=== PATIENT | male | born 1990 | race Asian ===

== ENCOUNTER 2017-12-02 10:27 | Emergency (ER) | payer OTHER ==
[~2017-12-02] VITALS: Ht 167.6 cm; Wt 73.2 kg
[2017-12-02 10:32] VITALS: TEMP 36.7; Ht 167.6 cm; Wt 73.2 kg
[2017-12-02] MEDS ORDERED: ALBUT/IPRATROP 3MG/0.5MG NEB 3 ML VIAL INH STA (10:47)
--- NOTE | 2017-12-02 10:50 | EMERGENCY ROOM VISIT NOTE ---
History Report prepared by Mary: Guerda Rasmussen Under the Supervision of: Dr. Maira Squires D.O. First contact with patient: 10:36 Chief Complaint: RESPIRATORY PROBLEMS Stated Complaint: HARD TO BREATH, CHEST FEELS BAD, FEVER YESTERDAY History of Present Illness The patient is a 27 year old female who presents to the Emergency Room with complaints of intermittent trouble breathing that started several days ago. The patient also complains of chest pressure and notes taking a deep breath makes his discomfort worse. He notes he had a fever of 37.8 yesterday. He reports he is coughing but is not producing any sputum. He states he has a sore throat but no difficulty swallowing. He also had abdominal pain 2 days ago but has not had any since. He notes he had an episode of vomiting yesterday. The patient notes he has diarrhea every morning but this is a chronic issue for him. He states his bowel movements change depending on what he eats. He denies any new medications, recent travels, or change in diet. 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 He denies a history of asthma. Source of History: patient Onset: several days ago Quality: pressure Timing: intermittent Modifying Factors (Worsening): other (taking a deep breath) Associated Symptoms: + fevers, + sorethroat, + cough, + chest pain (chest pressure), + vomiting, + abdominal pain, + diarrhea Review of Systems See HPI for pertinent positives & negatives. A total of 10 systems reviewed and were otherwise negative. Past Medical & Surgical Medical Problems: (1) Diarrhea Family History No pertinent family history Social History Smoking Status: Never Smoker Current/Historical Medications No Active Prescriptions or Reported Meds Allergies Coded Allergies: No Known Allergies (Unverified , 12/02/17) Physical Exam Vital Signs Date Time Temp Pulse Resp B/P (MAP) Pulse Ox O2 Delivery O2 Flow Rate FiO2 12/02/17 12:31 64 17 129/73 97 Room Air 12/02/17 10:41 Room Air 12/02/17 10:32 36.7 66 18 133/78 96 Room Air Physical Exam GENERAL: alert, well appearing, well nourished, no distress, non-toxic EYE EXAM: normal conjunctiva, PERRL and EOM's grossly intact OROPHARYNX: no exudate, no erythema, lips, buccal mucosa, and tongue normal and mucous membranes are moist NECK: supple, no nuchal rigidity, no adenopathy, non-tender LUNGS: Clear to auscultation. Normal chest wall mechanics, no w/r/r HEART: no murmurs, S1 normal and S2 normal CHEST: Mild reproducible tenderness along left sternal border. ABDOMEN: abdomen soft, non-tender, normo-active bowel sounds, no masses, no rebound or guarding. BACK: Back is symmetrical on inspection and there is no deformity, no midline tenderness, no CVA tenderness. SKIN: no rashes and no bruising UPPER EXTREMITIES: upper extremities are grossly normal. Full range of motion, normal pulses. LOWER EXTREMITIES: No pitting edema. Full range of motion, normal pulses. NEURO EXAM: Normal sensorium, cranial nerves II-XII grossly intact, normal speech, no gross weakness of arms, no gross weakness of legs. Medical Decision & Procedures ER Provider Diagnostic Interpretation: Radiology results have been interpreted by the radiologist and reviewed by me. CHEST 2 VIEWS ROUTINE CLINICAL HISTORY: sob, cp dyspnea COMPARISON STUDY: No previous studies for comparison. FINDINGS: The bones soft tissues and hemidiaphragms are normal. The cardiomediastinal silhouette is normal. The lungs are clear. The pulmonary vasculature is normal. IMPRESSION: Negative chest. The above report was generated using voice recognition software. It may contain grammatical, syntax or spelling errors. Electronically signed by: Ellis Posada M.D. 12/02/2017 11:26 AM Dictated Date/Time: 12/02/2017 11:26 AM Laboratory Results 12/02/17 10:50 Red Blood Count 5.42, Mean Corpuscular Volume 82.7, Mean Corpuscular Hemoglobin 28.6, Mean Corpuscular Hemoglobin Concent 34.6, Mean Platelet Volume 9.2, Neutrophils (%) (Auto) 62.4, Lymphocytes (%) (Auto) 30.5, Monocytes (%) (Auto) 5.2, Eosinophils (%) (Auto) 1.5, Basophils (%) (Auto) 0.2, Neutrophils # (Auto) 3.34, Lymphocytes # (Auto) 1.63, Monocytes # (Auto) 0.28, Eosinophils # (Auto) 0.08, Basophils # (Auto) 0.01 12/02/17 10:50 Test 12/02/17 10:50 White Blood Count 5.35 K/uL (4.8-10.8) Red Blood Count 5.42 M/uL (4.7-6.1) Hemoglobin 15.5 g/dL (14.0-18.0) Hematocrit 44.8 % (42-52) Mean Corpuscular Volume 82.7 fL (80-100) Mean Corpuscular Hemoglobin 28.6 pg (25-34) Mean Corpuscular Hemoglobin Concent 34.6 g/dl (32-36) Platelet Count 229 K/uL (130-400) Mean Platelet Volume 9.2 fL (7.4-10.4) Neutrophils (%) (Auto) 62.4 % Lymphocytes (%) (Auto) 30.5 % Monocytes (%) (Auto) 5.2 % Eosinophils (%) (Auto) 1.5 % Basophils (%) (Auto) 0.2 % Neutrophils # (Auto) 3.34 K/uL (1.4-6.5) Lymphocytes # (Auto) 1.63 K/uL (1.2-3.4) Monocytes # (Auto) 0.28 K/uL (0.11-0.59) Eosinophils # (Auto) 0.08 K/uL (0-0.5) Basophils # (Auto) 0.01 K/uL (0-0.2) RDW Standard Deviation 40.0 fL (36.4-46.3) RDW Coefficient of Variation 13.4 % (11.5-14.5) Immature Granulocyte % (Auto) 0.2 % Immature Granulocyte # (Auto) 0.01 K/uL (0.00-0.02) D-Dimer 190 ug/L FEU (0-500) Anion Gap 8.0 mmol/L (3-11) Est Creatinine Clear Calc Drug Dose 100.2 ml/min Estimated GFR () 119.6 Estimated GFR (Non- 103.2 BUN/Creatinine Ratio 15.3 (10-20) Calcium Level 9.1 mg/dl (8.5-10.1) Magnesium Level 2.2 mg/dl (1.8-2.4) Total Bilirubin 0.6 mg/dl (0.2-1) Aspartate Amino Transf (AST/SGOT) 23 U/L (15-37) Alanine Aminotransferase (ALT/SGPT) 21 U/L (12-78) Alkaline Phosphatase 52 U/L (45-117) Troponin I < 0.015 ng/ml (0-0.045) Total Protein 7.9 gm/dl (6.4-8.2) Albumin 4.4 gm/dl (3.4-5.0) Globulin 3.5 gm/dl (2.5-4.0) Albumin/Globulin Ratio 1.3 (0.9-2) Laboratory results per my review. Medications Administered Medications (Trade) Dose Ordered Sig/Bety Route Start Time Stop Time Status Last Admin Dose Admin Albuterol/ Ipratropium (Duoneb) 3 ml NOW STAT INH 12/02/17 10:47 12/02/17 10:52 DC 12/02/17 11:02 3 ML ECG Per My Interpretation Indication: SOB/dyspnea Rate (beats per minute): 68 Rhythm: sinus rhythm Findings: no acute ischemic change, no ectopy, other (normal axis, normal intervals) ED Course 1038: The patient was evaluated in room B2. A complete history and physical exam was performed. 1047: Ordered Duoneb 3 ml INH. 1155: I rechecked the patient. He feels better and states he does not want another breathing treatment. 1205: Ordered Toradol Inj 30 mg IV. 1215: Ordered Albuterol 2 puffs INH. 1220: Upon reevaluation, the patient is feeling better. I discussed the findings and the treatment plan with the patient. He verbalizes agreement and understanding. He was discharged home. Medical Decision Differential diagnosis: Etiologies such as infections, reactive airway disease, pneumonia, pneumothorax , COPD, CHF, cardiac ischemia, pulmonary embolism, musculoskeletal, gastrointestinal, as well as others were entertained. Heart score 0 PERC negative Patient well-appearing here and improved following breathing treatment. Patient declined any additional breathing treatment and refused MDI and spacer to go home. Patient's labs reassuring. Have a low suspicion for ACS, PE, no evidence of effusion or infiltrate, I do not suspect tamponade, vascular etiology, perforation, GI bleed. 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 I did discuss with him the importance of appropriate lab procedure and use of protective equipment. Discussed with him follow-up with [facility], symptoms to watch and return for, he verbalized understanding was agreeable with plan. Patient ambulatory here discharged with a steady gait, refused Tylenol and Toradol, tolerating p.o. , well-appearing at discharge. Medication Reconcilliation Current Medication List: was personally reviewed by me Blood Pressure Screening Patient's blood pressure: Elevated blood pressure Blood pressure disposition: Elevated BP felt to be situational Impression Primary Impression: Chest pain Additional Impression: Dyspnea Scribe Attestation The scribe's documentation has been prepared under my direction and personally reviewed by me in its entirety. I confirm that the note above accurately reflects all work, treatment, procedures, and medical decision making performed by me. Departure Information Dispostion Home / Self-Care Prescriptions No Active Prescriptions or Reported Meds Patient Instructions My [facility] Additional Instructions Please follow-up with your family [facility] regarding your recent symptoms. You may use the inhaler and spacer as needed for shortness of breath or wheezing up to every 4 hours. Please avoid any fumes or chemical exposures which could irritate your respiratory tract. Please always use caution when working with chemicals in the lab. If you develop worsening pain, worsening trouble breathing, dizziness, fevers or chills, vomiting, weakness, worsening cough, you have any other new and concerning symptoms, please return the emergency room. Problem Qualifiers Primary Impression: Chest pain Chest pain type: unspecified Qualified Codes: R07.9 - Chest pain, unspecified Additional Impression: Dyspnea Dyspnea type: shortness of breath Qualified Codes: R06.02 - Shortness of breath
[2017-12-02 11:00] LABS: BASO % 0.2 %; BASO ABS # 0.01 K/uL (0-0.2); EOS % 1.5 %; EOS ABS # 0.08 K/uL (0-0.5); HEMATOCRIT 44.8 % (42-52); HEMOGLOBIN 15.5 g/dL (14.0-18.0); IG# 0.01 K/uL (0.00-0.02); LYMPH % 30.5 %; LYMPH ABS # 1.63 K/uL (1.2-3.4); MEAN CELL VOLUME 82.7 fL (80-100); MEAN CORPUSCULAR HEMOGLOBIN 28.6 pg (25-34); MEAN CORPUSCULAR HGB CONC 34.6 g/dl (32-36); MEAN PLATELET VOLUME 9.2 fL (7.4-10.4); MONO % 5.2 %; MONO ABS # 0.28 K/uL (0.11-0.59); NEUT % 62.4 %; NEUT ABS # 3.34 K/uL (1.4-6.5); PLATELET COUNT 229 K/uL (130-400); RED CELL DISTRIBUTION WIDTH CV 13.4 % (11.5-14.5); WHITE BLOOD COUNT 5.35 K/uL (4.8-10.8)
[2017-12-02 11:21] LABS: ALBUMIN 4.4 gm/dl (3.4-5.0); ALKALINE PHOSPHATASE 52 U/L (45-117); ALT/SGPT 21 U/L (12-78); AST/SGOT 23 U/L (15-37); BLOOD UREA NITROGEN 15 mg/dl (7-18); CALCIUM 9.1 mg/dl (8.5-10.1); CARBON DIOXIDE 26 mmol/L (21-32); CREATININE 0.99 mg/dl (0.60-1.40); GLUCOSE 91 mg/dl (70-99); POTASSIUM 3.9 mmol/L (3.5-5.1); SODIUM 138 mmol/L (136-145); TOTAL PROTEIN 7.9 gm/dl (6.4-8.2)
--- NOTE | 2017-12-02 11:28 | DIAGNOSTIC IMAGING REPORT ---
CHEST 2 VIEWS ROUTINE CLINICAL HISTORY: sob, cp dyspnea COMPARISON STUDY: No previous studies for comparison. FINDINGS: The bones soft tissues and hemidiaphragms are normal. The cardiomediastinal silhouette is normal. The lungs are clear. The pulmonary vasculature is normal. IMPRESSION: Negative chest. The above report was generated using voice recognition software. It may contain grammatical, syntax or spelling errors. Electronically signed by: Ellis Posada M.D. 12/02/2017 11:26 AM Dictated Date/Time: 12/02/2017 11:26 AM
[2017-12-02] MEDS ORDERED: KETOROLAC TROMETHAMINE 30 MG/ML VIAL IV STA (12:05)
[2017-12-02] MEDS ORDERED: ALBUTEROL HFA 8 GM INHALER INH ONE (12:15)
[2017-12-02 12:31] VITALS: BP 129/73; PULSE 64; O2SAT 97
== END 2017-12-02 12:32 | disposition home or self-care (01) ==
LOC: C.EDB 10:29 → EDSEX 10:29 → C.EDB 12:32
DX: R07.9 Chest pain, unspecified (principal); R06.02 Shortness of breath